=== PATIENT | female | born 1970 | race Two or more races ===

== ENCOUNTER 2024-03-09 10:00 | Outpatient (RCR) | payer MEDICAID, SELFPAY ==
--- NOTE | 2024-02-15 15:01 | PTNOTE_ITS ---
PT Outpatient Daily Note OP Daily Note Outpatient Physical Therapy Treatment Date: 02/15/24 Visit Reasons: BACK SURGERY Subjective: Pt reports back feels tight but notices pain is mild has not needed to take pain meds much because pain level is manageable. Objective: Please see flow sheet for ther ex list. Assessment: Pt educated on log roll technique for supine to sit transfer, performed with Min [employer]. Plan: Continue with POC. Length of Time (minutes) of Treatment: 30 Minutes Procedure Charges Therapeutic Exercise 30 minutes: Yes
--- NOTE | 2024-02-18 15:06 | PT.ODAYNRPT ---
PT Outpatient Daily Note OP Daily Note Outpatient Physical Therapy Treatment Date: 02/18/24 Visit Reasons: BACK SURGERY Subjective: Pt reports back is sore from surgery but no pain. Objective: Please see flow sheet for ther ex list. Assessment: Performed STM to l/s and around incision, pt tolerated well reported relief and discomfort. Plan: Continue with POC. Length of Time (minutes) of Treatment: 30 Minutes Procedure Charges Therapeutic Exercise 30 minutes: Yes
--- NOTE | 2024-02-29 16:11 | PT.ODAYNRPT ---
PT Outpatient Daily Note OP Daily Note Outpatient Physical Therapy Treatment Date: 02/29/24 Visit Reasons: BACK SURGERY Subjective: Pt reports overall back is feeling better. Pt shared she made the mistake of trying to lay on her stomach but got into prone position but realized it might not be indicated at this time due to post op timeline so she immediately got out of prone position. Objective: Please see flow sheet for ther ex list. Assessment: Pt tolerated interventions well with some fatigue, progressing interventions per post op protocol. Plan: Assess response to treatment. Length of Time (minutes) of Treatment: 30 Minutes Procedure Charges Therapeutic Exercise 30 minutes: Yes
--- NOTE | 2024-03-07 11:24 | PT.ODAYNRPT ---
PT Outpatient Daily Note OP Daily Note Outpatient Physical Therapy Treatment Date: 03/07/24 Visit Reasons: BACK SURGERY Subjective: Pt's back is better. Pt notice less pain and has been able to walk longer. Objective: Please see flow chart for list of ther ex performed Assessment: Pt exhibit improvement with l/s mobility. Added more hip strengthening exercises with good tolerance Plan: Continue with PT Length of Time (minutes) of Treatment: 30 Minutes Procedure Charges Therapeutic Exercise 30 minutes: Yes
--- NOTE | 2024-03-09 11:12 | PT.ODAYNRPT ---
PT Outpatient Daily Note OP Daily Note Outpatient Physical Therapy Treatment Date: 03/09/24 Visit Reasons: BACK SURGERY Subjective: Pt content to share LBP is improving, can do light chores around the house but being compliant with post op precautions. Objective: Please see flow sheet for ther ex list. Assessment: Decrease c/o pain resulting in improved tolerance to interventions assigned. Plan: Continue with POC. Length of Time (minutes) of Treatment: 30 Minutes Procedure Charges Therapeutic Exercise 30 minutes: Yes
--- NOTE | 2024-03-09 11:34 | PT.ODAYNRPT ---
PT Outpatient Daily Note OP Daily Note Outpatient Physical Therapy Treatment Date: 03/09/24 Visit Reasons: BACK SURGERY Subjective:
== END 2024-03-12 23:59 | disposition home or self-care (01) ==
LOC: CPTX 10:00
PROVIDERS: PCP Orthopaedic Surgery Orthopaedic Surgery of the Spine; Referring Provider Orthopaedic Surgery Orthopaedic Surgery of the Spine; Visit Provider Orthopaedic Surgery Orthopaedic Surgery of the Spine
DX: M54.16 Radiculopathy, lumbar region (principal); R26.2 Difficulty in walking, not elsewhere classified; Z98.1 Arthrodesis status
CPT/HCPCS: 97110

== ENCOUNTER 2024-03-28 14:30 | Outpatient (RCR) | payer MEDICAID, SELFPAY ==
--- NOTE | 2024-03-14 14:44 | PT.ODAYNRPT ---
PT Outpatient Daily Note OP Daily Note Outpatient Physical Therapy Treatment Date: 03/14/24 Visit Reasons: Back Surgery Subjective: No new complaints or concerns. Objective: Please see flow sheet for ther ex list. Assessment: Pt presents with low back muscle fatigue and soreness at end of session. Plan: Continue with POC. Length of Time (minutes) of Treatment: 30 Minutes Procedure Charges Therapeutic Exercise 30 minutes: Yes
--- NOTE | 2024-03-22 12:53 | PT.ODAYNRPT ---
PT Outpatient Daily Note OP Daily Note Outpatient Physical Therapy Treatment Date: 03/22/24 Visit Reasons: Back Surgery Subjective: Pt's back is better. Her surgical area feels much better. Pt mention midback hurts more lately. Pt stopped wearing the brace around her house. Objective: Please see flow chart for list of ther ex performed Assessment: improving with L/S mobility and progressing with hip strengthening exercises. Cues to correct form with side step and monster walk. Plan: Continue with PT Length of Time (minutes) of Treatment: 30 Minutes Procedure Charges Therapeutic Exercise 30 minutes: Yes
--- NOTE | 2024-03-28 15:07 | PT.ODAYNRPT ---
PT Outpatient Daily Note OP Daily Note Outpatient Physical Therapy Treatment Date: 03/28/24 Visit Reasons: Back Surgery Subjective: Pt's back is better. Pt has been able to stand, walk, and perform chores with less limitation. Objective: Please see flow chart for list of ther ex perfromed Assessment: progressing with overall mobility. Cues to correct monster walk form to rotate laterally with the hips. Plan: Continue with PT Length of Time (minutes) of Treatment: 30 Minutes Procedure Charges Therapeutic Exercise 30 minutes: Yes
== END 2024-04-12 23:59 | disposition home or self-care (01) ==
LOC: CPTX 14:30
PROVIDERS: PCP Orthopaedic Surgery Orthopaedic Surgery of the Spine; Referring Provider Orthopaedic Surgery Orthopaedic Surgery of the Spine; Visit Provider Orthopaedic Surgery Orthopaedic Surgery of the Spine
DX: M54.16 Radiculopathy, lumbar region (principal); R26.2 Difficulty in walking, not elsewhere classified; Z98.1 Arthrodesis status
CPT/HCPCS: 97110

== ENCOUNTER 2024-04-24 22:04 | Emergency (ER) | payer MEDICAID, SELFPAY ==
[2024-04-24 22:05] VITALS: BMI 31.8
[2024-04-24 22:29] VITALS: BP 124/77; PULSE 75; RESP 18; TEMP 36.9; O2SAT 98
--- NOTE | 2024-04-24 22:48 | EDNOTE_ITS ---
ED Back Injury Pain RME/HPI General Chief Complaint: Back Pain/Injury Stated Complaint: back pain after surgery 4 mo. ago Time Seen by Provider: 04/24/24 22:07 Arrival date/time: 04/24/24 22:04 This is a 53-year-old female that reports that she had back surgery approximately 4 months ago. Patient actually has a follow-up appointment in 2 days with her surgeon. Patient states that approximately 2 days ago she leaned backwards on a pile of clothes and ended up sitting on the pile close. Patient denies falling. Patient denies any acute injuries at that time. Patient states that since then she has had back pain. Patient denies fever, chills, nausea, vomiting, diarrhea, cough, chest pain, shortness of breath and urinary symptoms. Patient reports that she was taking oxycodone for pain but in the last couple months she was not requiring the medication. Related Data Previous Rx's ?Medication ?Instructions ?Recorded famotidine 20 mg tablet (Pepcid) 20 mg PO BID #14 tabs 04/19/22 hydrocodone 5 mg-acetaminophen 325 1 tab PO TID PRN pain #14 tabs 04/19/22 mg tablet prednisone 50 mg tablet 50 mg PO QDAY #7 tabs 04/19/22 ibuprofen 800 mg tablet 800 mg PO TID PRN pain #30 tabs 10/12/23 cyclobenzaprine 10 mg tablet 10 mg PO HS #10 tabs 04/24/24 Allergies Allergy/AdvReac Type Severity Reaction Status Date / Time No Known Allergies Allergy Verified 10/12/23 12:07 Review of Systems Review of Systems Systems Reviewed: All systems reviewed, normal except as documented Past Medical History Past Medical History NEUROLOGIC: Negative Neurological Disorders CARDIAC: Negative Cardiac Disorders or Congestive Heart Failure RESPIRATORY: Negative Chronic Obstructive Pulmonary Disease (COPD) GENITOURINARY: Negative Renal Disease ENDOCRINE: Positive Diabetes Mellitus Type 2; Negative Diabetes Mellitus Type 1 Social History SMOKING STATUS: Never smoker SUBSTANCE USE: does not use ED Exam General General appearance: Present alert and in no apparent distress Head Head exam: Present atraumatic Eye Eye exam: Present normal appearance, PERRL and EOMI ENT ENT exam: Present normal exam, normal oropharynx and mucous membranes moist Neck Neck exam: Present normal inspection, full ROM and trachea midline Chest Chest inspection: Present normal inspection and symmetric chest wall rise Respiratory Respiratory exam: Present normal lung sounds bilaterally Cardiovascular Cardiovascular exam: Present regular rate, normal rhythm and normal heart sounds Abdominal Exam Abdominal exam: Present soft Extremities Exam Extremities exam: Present normal inspection and full ROM Back Exam Back exam: Present normal inspection and full ROM Neurological Exam Neurological exam: Present alert, oriented X3 and CN II-XII intact Psychiatric Psychiatric exam: Present normal affect and normal mood Skin Skin exam: Present warm, dry, intact and normal color Course Quality Measures none Orders Category Date Time Status Urinalysis, C/S if Indicated Stat Lab 04/24/24 23:00 Completed Urine Culture Stat Lab 04/24/24 23:00 Completed CYCLObenzaPRINE [Flexeril] Med 04/24/24 22:55 Discontinued 10 mg PO X1 ONE Ketorolac Inj [Toradol Inj] Med 04/24/24 22:55 Discontinued 60 mg IM X1 ONE cefTRIAXone [Rocephin] 1,000 mg Med 04/25/24 00:01 Discontinued Lidocaine 1% 20 ml [Xylocaine 1% 20 ML] 2.1 ml IM X1 oxyCODONE/APAP 5/325 [Percocet 5/325] Med 04/24/24 22:55 Discontinued 1 tab PO X1 ONE Vital Signs Vital signs: Vital Signs Temperature 98.4 F 04/24/24 22:29 Pulse Rate 75 04/24/24 22:29 Respiratory Rate 18 04/24/24 22:29 Blood Pressure 124/77 04/24/24 22:29 Pulse Oximetry (%) 98 04/24/24 22:29 Oxygen Delivery Method Room Air 04/24/24 22:29 Back Pain / Injury MDM Narrative MDM Narrative:: This is a 53-year-old female that reports that she had back surgery appr oximately 4 months ago. Patient actually has a follow-up appointment in 2 days with her surgeon. Patient states that approximately 2 days ago she leaned backwards on a pile of clothes and ended up sitting on the pile close. Patient denies falling. Patient denies any acute injuries at that time. Patient states that since then she has had back pain. Patient denies fever, chills, nausea, vomiting, diarrhea, cough, chest pain, shortness of breath and urinary symptoms. Patient reports that she was taking oxycodone for pain but in the last couple months she was not requiring the medication. I explained to patient at length that she has white blood cells leukocyte Estrace and blood in her urine. Patient states that she was recently seen by her primary provider and was told she had a UTI but patient does not want to take medication because she said she was not having any urinary symptoms. Patient states she sometimes feels pressure but no pain when she urinates. I also explained to patient that because there is blood in her urine this could also be a kidney stone. Patient reports that she is feeling better with the pain medication and if symptoms change or worsen she will come back to the emergency room otherwise for follow-up with her back surgeon. Will treat as a UTI for now. Patient data External records reviewed:: [facility] previous records Clinical information provided by:: patient Social determinants that could affect healthcare access:: none Patient has the following chronic illnesses:: see hpi How is presenting disease/condition affected by chronic disease/condition?: uneffected by Evaluation data The following diagnostics were reviewed and interpreted by me:: lab results Lab and/or radiology exams considered but not ordered:: none Interpretation Summary: see note Medications / Prescriptions Medications or Prescriptions considered but not ordered:: none Medication administrations:: Medication Administration History Discontinued Medications Ceftriaxone Sodium 1,000 mg/ (Lidocaine HCl 2.1 ml) 0 mg IM X1 ONE Stop: 04/25/24 00:02 Last Admin: 04/25/24 00:17 Dose: 1,000 mg Documented By: Cyclobenzaprine HCl (Cyclobenzaprine 5 Mg Tablet) 10 mg PO X1 ONE Stop: 04/24/24 22:56 Last Admin: 04/24/24 23:02 Dose: 10 mg Documented By: Ketorolac Tromethamine (Ketorolac Inj 60 Mg/2 Ml Vial) 60 mg IM X1 ONE Stop: 04/24/24 22:56 Last Admin: 04/24/24 23:04 Dose: 60 mg Documented By: Oxycodone/Acetaminophen (Oxycodone/Apap 5/325 Tablet) 1 tab PO X1 ONE Stop: 04/24/24 22:56 Last Admin: 04/24/24 23:02 Dose: 1 tab Documented By: see mar Consultations Consultation(s) initiated? (list below): No Diagnosis Most likely diagnosis given after review of the tests above:: back pain/uti Admission Indicated Admission indicated?: not indicated Admission Request Was there a request for admission?: No Disposition Plan Disposition Plan: Discharge Discharge Attestation Discharge Attestation: The patient and all family members were given an opportunity to ask questions and understood the discharge instructions. Discharge instructions specifically effects, indications for sooner follow up or return to the emergency department, and the expected course of current diagnosis. Patient condition: Stable Discharge Plan Plan Patient Disposition: HOME (Self Care) Patient condition on transfer: Stable Prescriptions/Referrals Prescriptions/Med Rec: New cyclobenzaprine 10 mg tablet 10 mg PO HS Qty: 10 0RF No Action prednisone 50 mg tablet 50 mg PO QDAY Qty: 7 0RF famotidine [Pepcid] 20 mg tablet 20 mg PO BID Qty: 14 0RF hydrocodone-acetaminophen 5-325 mg tablet 1 tab PO TID MDD 3 PRN (Reason: pain) Qty: 14 0RF ibuprofen 800 mg tablet 800 mg PO TID PRN (Reason: pain) Qty: 30 0RF Referrals: Hyun Meehan MD [Primary Care Provider] - In 1 week Problem List Clinical Impression: Hematuria, Back pain, UTI (urinary tract infection) Patient/Caregiver Discharge Instructions Discharge Activity: activity as tolerated Education Materials: ED Back Pain (Acute or Chronic), ED Hematuria, ED CYSTITIS Female Adult Additional Instructions: Keep scheduled appointment with surgeon and primary doctor. Follow-up with urine culture with primary provider. If symptoms change or get worse please come back to the emergency room. Print Language: Vietnamese Stand Alone Forms: Jeannine Award Info., Patient Portal Info Letter PA/VALERIY Supervising Physician HAKAN/TEXTILE CONVERTER Supervising Physician: rachel
[2024-04-24] MEDS: CYCLObenzaPRINE 5 MG TABLET 10 MG PO (23:02)
[2024-04-24] MEDS: oxyCODONE/APAP 5/325 TABLET 1 TAB PO (23:02)
[2024-04-24] MEDS: KETOROLAC INJ 60 MG/2 ML VIAL IM (23:04)
[2024-04-24 23:17] LABS: Collection Type, Urine Voided
[2024-04-24 23:31] LABS: Bilirubin,Urine Negative (Negative); Blood,Urine Trace (Negative); Clarity,Urine Clear (Clear/Hazy); Color,Urine Lt-Yellow (Lt Yel-Yel); Glucose, Urine Negative (Negative); Ketones,Urine Negative (Negative); Leukocyte Esterase,Urine Positive (Negative); Nitrite,Urine Negative (Negative); Protein,Urine Trace (Neg - Trace); RBC,Urine 10 /hpf (0-3); Specific Gravity,Urine 1.026 (1.001-1.035); Squamous Epithelial Cell,Urine 3 /hpf (0-5); Urobilinogen,Urine Negative mg/dL (0.0-1.0); WBC,Urine 37 /hpf (0-5)
[2024-04-24 23:34] LABS: Culture Indicated,Urine Yes
[2024-04-25] MEDS: cefTRIAXone 1,000 MG, LIDOCAINE 1% 20 ML 2.1 ML IM (00:17)
== END 2024-04-25 00:41 | disposition home or self-care (01) ==
PROVIDERS: Nurse Practitioner Family; Emergency Provider Emergency Medicine; PCP Internal Medicine; Referring Provider Emergency Medicine
DX: N39.0 Urinary tract infection, site not specified (principal)
CPT/HCPCS: 81001; 87086; 96372; 99283; J0696; J1885; J3490; A9270

== ENCOUNTER 2024-05-04 13:36 | Outpatient (RCR) | payer MEDICAID, SELFPAY ==
--- NOTE | 2024-05-04 14:27 | PT.ODS1RPT ---
PT OP Progress/Discharge Note Date of Service: 05/04/24 Progress Note/DC Note Progress Note/Discharge Note: Progress Note Patient Information Visit Reasons: Back surgery Medical Diagnosis: z47.89; m54.16 Treatment Dx #1: Back Pain Certification Date Certification Dates: 05/04/24 to 08/02/24 Status Subjective: Pt mentioned her back has been hurting more lately. Pt notice some numbness down to the left hip recently and went to the ER. Pt admit she has been doing more lately. Pt has been walking, standing, performing chores, and lifting activities as able. Pt does not follow up with surgeon until June 2024. Pt continues to wear back brace intermittently. Objective: L/S AROM: all motions are 75 % towards end range with pain Hip PROM: all motions are WFL Hip MMTs: grossly 4-/5 Assessment: Pt has improved with L/S mobility and core strength allowing her to start light ADLs. Pt advised to modified task where she is lifting less using her back which in time can cause tissue irritation. Pt gave verbal understanding . Pt has not met set goals and will continue to benefit from physical therapy; thank you for your referrals. Plan: Continue with PT/POC and add 8 sessions (2 x wk for 4 wks) Procedure Charges Therapeutic Exercise 30 minutes: Yes
--- NOTE | 2024-05-17 16:10 | PT.ODS1RPT ---
PT OP Progress/Discharge Note Date of Service: 05/17/24 Progress Note/DC Note Progress Note/Discharge Note: Progress Note Patient Information Visit Reasons: Back surgery Medical Diagnosis: z47.89; m54.16 Treatment Dx #1: Back Pain Service Continue Service or Discharge: Continue Service Certification Date Certification Dates: 05/17/24 to 08/14/24 Status Subjective: Pt's back has been hurting more lately. Pt mentioned she's been doing a lot of more lately such as standing, cooking, and chores. Pt has not follow up with surgeon yet but will see him in a few weeks. Pt notice she's been able to walk longer and start some of her recreational activities. Objective: L/S AROM: all motions are WFL Hip PROM: all motions are WFL Hip MMTs: grossly 3+/5 Assessment: Pt is progressing with L/S mobility and core strength allowing her to ambulate, perform chores, and light recreational activities with less limitation. Pt has not met set goals and will continue to benefit from physical therapy; thank you for your referrals. Plan: Continue with PT/POC and add 6 sessions (2 x wk for 3 wks)
== END 2024-05-13 23:59 | disposition home or self-care (01) ==
LOC: CPTX 13:36
PROVIDERS: PCP Internal Medicine; Referring Provider Internal Medicine; Visit Provider Internal Medicine
DX: M54.16 Radiculopathy, lumbar region (principal); Z98.1 Arthrodesis status; R26.2 Difficulty in walking, not elsewhere classified
CPT/HCPCS: 97110

== ENCOUNTER → 2024-05-18 | Outpatient (CLI) | payer MEDICAID, SELFPAY ==
--- NOTE | 2024-05-18 12:40 | XR_ITS ---
Examination: Bone densitometry Date and time of exam:May 18, 2024 1320 hours INDICATIONS: Hysterectomy age 29 Technique: Lumbar spine and hip total bone mineralization values of an calculated. Peak reference and age match control results have been displayed. Findings: Lumbar spine total bone mineralization is0.814 gm/cm2. This is 1.5 standard deviations below peak reference. This is 0.5 standard deviations below age-matched controls. Hip total bone mineralization is 0.866 gm/cm2 This is 0.7 standard deviations below peak reference. This is 0.0 standard deviations at age-matched controls Impression: There is osteopenia based on lumbar spine measurements. There is osteopenia based on hip measurements
== END | disposition home or self-care (01) ==
LOC: CDIM 12:53
PROVIDERS: Referring Provider Nurse Practitioner Family; Visit Provider Nurse Practitioner Family
DX: M85.89 Other specified disorders of bone density and structure, multiple sites (principal); Z78.0 Asymptomatic menopausal state
CPT/HCPCS: 77080

== ENCOUNTER → 2024-05-25 | Outpatient (CLI) | payer MEDICAID, SELFPAY ==
--- NOTE | 2024-05-25 14:30 | XR_ITS ---
Examination: Screening digital mammography, bilateral Computer aided detection 3-D breast Tomosynthesis, bilateral Date and time of exam: May 25, 2024 1420 hrs. Comparison August 10, 2015 Indication: Screening Technique: Nonmagnified MLO, CC views of the breasts to been obtained, reconstructed from 3-D Tomosynthesis images. R2 computer aided detection program utilized for evaluation of suspicious masses and/or abnormal calcifications. 3-D Tomosynthesis images obtained. Findings: Scattered areas of fibroglandular density Bilateral benign calcifications. No interval suspicious masses Impression: BI-RADS category II: Benign Findings. Recommend 1 year follow-up mammogram.
== END | disposition home or self-care (01) ==
PROVIDERS: PCP Nurse Practitioner Family; Referring Provider Nurse Practitioner Family; Visit Provider Nurse Practitioner Family
DX: Z12.31 Encounter for screening mammogram for malignant neoplasm of breast (principal); R92.323 Mammographic fibroglandular density, bilateral breasts; R92.1 Mammographic calcification found on diagnostic imaging of breast
CPT/HCPCS: 77063; 77067

== ENCOUNTER 2024-06-10 11:30 | Outpatient (RCR) | payer MEDICAID, SELFPAY ==
--- NOTE | 2024-05-25 09:32 | PT.ODAYNRPT ---
PT Outpatient Daily Note OP Daily Note Outpatient Physical Therapy Treatment Date: 05/25/24 Visit Reasons: Back surgery Subjective: Pt reports LBP has been worse these last 3 days, feels like pain deep where the incision is. Pt does not recall doing anything different or strenuous. Pt mentioned her daughter brought to her attention that her scar has some dry patches. Pt did mention that a few days ago she was sleeping then rolled over on her stomach, back was painful pt had to roll back to her side. Objective: Please see flow sheet for ther ex list. Assessment: Regressed interventions to accommodate reported pain. PTOR assessed pt scar and said it was ok for pt to participate in PT and recommended pt follow up with PCP if pt has been experiencing worsening symptoms, pt agreed. Plan: Assess response to treatment. Length of Time (minutes) of Treatment: 30 Minutes Procedure Charges Therapeutic Exercise 30 minutes: Yes
--- NOTE | 2024-05-31 13:05 | PT.ODAYNRPT ---
PT Outpatient Daily Note OP Daily Note Outpatient Physical Therapy Treatment Date: 05/31/24 Visit Reasons: Back surgery Subjective: Pt reports back continues to be painful and sore. Pt describes pain deep below incision. Pt has been completing chores such as washing dishes, cleaning shower and doing laundry. Objective: Please see flow sheet for ther ex list. Assessment: Interventions completed with no pain allowing for increase progression in clinic. Plan: Continue with POC. Length of Time (minutes) of Treatment: 30 Minutes Procedure Charges Therapeutic Exercise 30 minutes: Yes
--- NOTE | 2024-06-02 11:10 | PT.ODAYNRPT ---
PT Outpatient Daily Note OP Daily Note Outpatient Physical Therapy Treatment Date: 06/02/24 Visit Reasons: Back surgery Subjective: Pt reports back is slowly feeling better, notices less pain compares to a few days ago. Objective: Please see flow sheet for ther ex list. Assessment: Progression of interventions completed with no complaints. Plan: Continue with POc. Length of Time (minutes) of Treatment: 30 Minutes Procedure Charges Therapeutic Exercise 30 minutes: Yes
--- NOTE | 2024-06-10 12:55 | PT.ODAYNRPT ---
PT Outpatient Daily Note OP Daily Note Outpatient Physical Therapy Treatment Date: 06/10/24 Visit Reasons: Back surgery Subjective: Pt's back has been hurting more lately. Pt mentioned she has pain all over the body as well as swelling in the hands. Objective: Please see flow chart for list of ther ex performed Assessment: increase more core strengthening exercises with good tolerance Plan: Continue with PT Length of Time (minutes) of Treatment: 30 Minutes Procedure Charges Therapeutic Exercise 30 minutes: Yes
== END 2024-06-10 23:59 | disposition home or self-care (01) ==
LOC: CPTX 11:30
PROVIDERS: PCP Internal Medicine; Referring Provider Internal Medicine; Visit Provider Internal Medicine
DX: M54.16 Radiculopathy, lumbar region (principal); R26.2 Difficulty in walking, not elsewhere classified; Z98.1 Arthrodesis status
CPT/HCPCS: 97110

== ENCOUNTER 2024-06-22 10:30 | Outpatient (RCR) | payer MEDICAID, SELFPAY ==
--- NOTE | 2024-06-15 13:17 | PT.ODAYNRPT ---
PT Outpatient Daily Note OP Daily Note Outpatient Physical Therapy Treatment Date: 06/15/24 Visit Reasons: Back surgery Subjective: Pt's back is doing okay but body ache. Pt mentioned since the cold front her scar area feels like ripping. Objective: Please see flow chart for list of ther ex performed Assessment: encourage patient to move as able at home to maintain mobility. Pt gave verbal understanding. slow progress with overall spinal mobility due to pain with most instructed exercises in therapy. Plan: Continue with PT Length of Time (minutes) of Treatment: 30 Minutes Procedure Charges Therapeutic Exercise 30 minutes: Yes
--- NOTE | 2024-06-17 12:57 | PT.ODAYNRPT ---
PT Outpatient Daily Note OP Daily Note Outpatient Physical Therapy Treatment Date: 06/17/24 Visit Reasons: Back surgery Subjective: Pt's back is better but her whole body hurts. Objective: Please see flow chart for list of ther ex performed Assessment: tolerate exercises with minimal pain; patient encourage to continue light ADLs at home to maintain overall mobility. Plan: Continue with PT Length of Time (minutes) of Treatment: 30 Minutes Procedure Charges Therapeutic Exercise 30 minutes: Yes
--- NOTE | 2024-06-22 11:39 | PT.ODAYNRPT ---
PT Outpatient Daily Note OP Daily Note Outpatient Physical Therapy Treatment Date: 06/22/24 Visit Reasons: Back surgery Subjective: Pt reports back continues to be painful, feels it is more superficial but lately she can not find relief. Objective: Please see flow sheet for ther ex list. Assessment: Pt presents in clinic with moderate pain delaying progression of interventions. Plan: Continue with POC. Length of Time (minutes) of Treatment: 30 Minutes Procedure Charges Therapeutic Exercise 30 minutes: Yes
== END 2024-07-11 23:59 | disposition home or self-care (01) ==
LOC: CPTX 10:30
PROVIDERS: PCP Internal Medicine; Referring Provider Internal Medicine; Visit Provider Internal Medicine
DX: M54.16 Radiculopathy, lumbar region (principal); R26.2 Difficulty in walking, not elsewhere classified; Z98.1 Arthrodesis status
CPT/HCPCS: 97110

== ENCOUNTER 2024-07-22 13:00 | Outpatient (RCR) | payer MEDICAID, SELFPAY ==
--- NOTE | 2024-07-15 14:03 | PT.ODAYNRPT ---
PT Outpatient Daily Note OP Daily Note Outpatient Physical Therapy Treatment Date: 07/15/24 Visit Reasons: Back surgery Subjective: Pt reports she continues to have pain in her back does not feel any improvement. Pt mentioned she went to see the surgeon, they ordered a CT scan for pt. Pt mentioned her incision continues to be painful and that rash like spot feels like it is getting bigger, she mentioned it to the doctor but he did not take a look. Objective: Please see flow sheet for ther ex list. Assessment: Pt demonstrates poor activity tolerance, presents with high pain in clinic. Plan: Continue with poC. Length of Time (minutes) of Treatment: 30 Minutes Procedure Charges Therapeutic Exercise 30 minutes: Yes
--- NOTE | 2024-07-22 13:40 | PT.ODAYNRPT ---
PT Outpatient Daily Note OP Daily Note Outpatient Physical Therapy Treatment Date: 07/22/24 Visit Reasons: Back surgery Subjective: Pt reports back continues to be painful. Pt shared that the rash or spot on and around her scar is growing and feels like that is where the pain is coming from. Pt reports burning, electric feeling pain and it goes from scar to R glute area. As per pt she is going to schedule another appointment with surgeon because she is really concerned about it. Pt shared there are times wher she feels ill, gets the chills and can not even get out of bed due to the pain. Objective: Please see flow sheet for ther ex list. Assessment: Modified interventions to accommodate reported pain. Plan: Continue with poC. Length of Time (minutes) of Treatment: 30 Minutes Procedure Charges Therapeutic Exercise 30 minutes: Yes
--- NOTE | 2024-07-27 12:03 | PT.ODS1RPT ---
PT OP Progress/Discharge Note Date of Service: 07/27/24 Progress Note/DC Note Progress Note/Discharge Note: DC Note Patient Information Visit Reasons: Back surgery Service Discharge Date: 07/27/24 Status Assessment: Pt has been seen for 19 visits (eval + 18 visits). Pt last treated on 07/22/24 and wants to be d/c from care. Pt will follow up with MD for further direction and consultation. Pt met most goals set in therapy; thank you for your referrals.
== END 2024-08-10 23:59 | disposition home or self-care (01) ==
LOC: CPTX 13:00
PROVIDERS: PCP Orthopaedic Surgery Orthopaedic Surgery of the Spine; Referring Provider Orthopaedic Surgery Orthopaedic Surgery of the Spine; Visit Provider Orthopaedic Surgery Orthopaedic Surgery of the Spine
DX: M54.16 Radiculopathy, lumbar region (principal); R26.2 Difficulty in walking, not elsewhere classified; Z98.1 Arthrodesis status
CPT/HCPCS: 97110

== ENCOUNTER 2024-10-20 10:11 | Outpatient (AMB) | payer MEDICARE, MEDICAID, SELFPAY ==
[2024-10-20 10:54] VITALS: BP 100/70; PULSE 66; RESP 18; TEMP 36.5; O2SAT 96; BMI 34.7
--- NOTE | 2024-10-20 10:54 | ORTHONT_ITS ---
Vital signs 10/20/24 10:54 Height 1.57 m Height Method Stated Weight 86.239 kg Weight Measurement Method Standing Scale BMI 34.7 BP 100/70 Blood Pressure Source Automatic Cuff Blood Pressure Location Right Upper Arm Position Sitting Respiration 18 Pulse 66 Pulse Source Monitor Temp 97.7 F Temp Source Temporal Artery Scan Pulse Oximetry (%) 96 Oxygen Delivery Method Room Air Med/Allergies Allergies & Medications Allergies No Known Allergies Allergy (Verified 10/20/24 10:58) Medication Reconciliation hydrocodone 5 mg-acetaminophen 325 mg tablet 1 tab PO TID PRN pain #14 tabs 04/19/22 [Rx Confirmed 10/20/24] pregabalin 100 mg capsule 100 mg PO QDAY 10/20/24 [History Confirmed 10/20/24] semaglutide 0.25 mg or 0.5 mg (2 mg/3 mL) subcutaneous pen injector (Ozempic) 0.5 mg subcut QWEEK 10/20/24 [History Confirmed 10/20/24] Exam Exam Patient is in no acute distress and is cooperative with the examination today. Breathing is nonlabored. In no respiratory distress. Bilateral extremities were evaluated and demonstrates sensation intact to light touch. Palpable pedal pulses are present. No significant edema is present. Bilateral hips were examined. The patient has no pain with log roll of the hips. Internal rotation to 30 degrees and external rotation to 30 degrees is painless. Negative FADIR. The left knee was examined. The left knee is in varus alignment. Range of motion from 0-115 degrees. Knee is stable to varus and valgus as well as AP translation with <5mm. Patient has a negative McMurrays. There is no pain with patellofemoral compression and no crepitus noted. The knee is tender to palpation medially. The right knee was also examined. The right knee is in varus alignment. Range of motion from 0-120 degrees. Knee is stable to varus and valgus as well as AP translation with <5mm. Patient has a negative McMurrays. There is no pain with patellofemoral compression and no crepitus noted. The knee is tender to palpation medially. Assessment and Plan Problem List (1) Degenerative arthritis of knee, bilateral: Status: Acute Plan: Patient is a pleasant 54-year-old female with bilateral knee pain and bilateral knee arthritis. We discussed nonoperative and operative. I would like to see weightbearing x-rays. I do suspect she has arthritis as she has significant coronal deformity of her knee. Office Procedures GNS Level of Care Nursing/Assessment Patient Status: Established Patient Nursing Assessment/Reassesment: Medication Reconciliation, Update PMH in EMR and Vital Signs Coordination of Care: Complex Care and Chronic Disease 1-5, Education Complex Pt/Fam, Consent,records obtained, informed consent, Lab and Imaging orders, Results/Orders obtained and Staff clarify orders Special Needs: Language special needs Established Patient Charge Established Patient Point Assignment: 110 Established Patient Point Charge: EP Level 3 (80-115) MA Intake Visit Data Collection New Patient or Established: Established Patient (seen at [facility] [place] within 3 years) Reason for Visit:: KNEE PAIN Seen by Clinical Staff ONLY (RN/MA): No Verbal consent obtained for Telemed visit?: No Product Support Sales Representative Required: Yes PCP or OBGYN visit in last 3 months: Yes Hx Now: No Do You Feel Safe at Home: Yes Authorities Contacted: N/A Questionairres Past Medical History Past Medical History Have you ever been diagnosed with any of the following: Neurological Problems Cerebrovascular Accident (CVA): No Transient Ischemic Attacks (TIA): No Dementia: No Alzheimer's Disease: No Parkinson's Disease: No Brain Tumor: No Meningitis: No Seizures: No Epilepsy: No Multiple Sclerosis: No Cerebral Palsy: No Amyotrophic Lateral Sclerosis (ALS/Rina Gehrig's): No Guillain-[place] Syndrome: No Spina Bifida: No Paralysis: No Peripheral Neuropathy: No Evans's Palsy: No Subdural Hematoma: No Migraine: No Head Trauma: No Spinal Cord Injury: No Traumatic Brain Injury: No Cardiology Problems Myocardial Infarction: No Cardiac Arrhythmia: No Atrial Fibrillation: No Angina: No Heart Murmur: No Coronary Artery Disease: No Atherosclerotic Heart Disease: No Peripheral Vascular Disease: No Hypercholesterolemia: No Aneurysm: No Congestive Heart Failure: No Congenital Heart Disease: No Valvular Heart Disease: No Rheumatic Fever: No Cardiomyopathy: No Edema: No Pericarditis: No Cellulitis: No Deep Vein Thrombosis: No Hypertension: No Hypotension: No Varicose Veins: No Respiratory Problems Chronic Obstructive Pulmonary Disease (COPD): No Asthma: No Bronchitis: No Emphysema: No Pneumonia: No Pulmonary Fibrosis: No Tuberculosis: No Pulmonary Embolism: No Pulmonary Edema: No Sleep Apnea: No CPAP Dependent: No Respiratory Aspiration: No Dyspnea: No Orthopnea: No Hx Cough: No Cough: No Wheezing: No Chest Deformities: No Smoking: No Smoking Cessation Counseling: No Smoking Exposure: No Tobacco Use: No Clubbing: No Exposure to Respiratory Irritants: No Intubation: No Stomache/Intestinal Problems Liver Cancer: No Hepatitis: No Cirrhosis: No Pancreatic Cancer: No Pancreatitis: No Celiac Disease: No Gall Bladder Disease: No Gastrointestinal Bleed: No Esophageal Varices: No Dougherty's Esophagus: No Colitis: No Ulcerative Colitis: No Diverticulitis: No Diverticulosis: No Ulcer: No Colorectal Cancer: No Irritable Bowel: No Crohn's Disease: No Obstructive Bowel: No Hiatal Hernia: No Hemorrhoids: No Gastroesophageal Reflux Disease: No Polyps: No Obesity: No Genital/Urinary Problems Chronic Kidney Disease: No Renal Disease: No Kidney Stones: No Polycystic Kidney Disease: No Neurogenic Bladder: No Inguinal Hernia: No Dialysis: No Reproductive Problems Breast Cancer: No Endometriosis: No Fibroids: No Genital Herpes: No Gonorrhea: No Pelvic Inflammatory Disease: No Polycystic Ovarian Syndrome: No Previous Pregnancies: No Syphilis: No Uterine Prolapse: No Musculoskeletal Problems Muscular Dystrophy: No Myasthenia Gravis: No Marfan's Syndrome: No Bone Cancer: No Arthritis: No Rheumatoid Arthritis: No Osteoporosis: No Degenerative Disk Disease: No Gout: No Scoliosis: No Carpal Tunnel Syndrome: No Fibromyalgia: No Fractures: No Degenerative Joint Disease: No Osteomyelitis: No Poliovirus: No Head,Eye,Nose,Throat Problems Cataracts: No Glaucoma: No Blind: No Retinal Detachment: No Macular Degeneration: No Chronic Ear Infections: No Deafness: No Eye Prosthesis: No Endocrine Problems Diabetes Mellitus Type 1: No Diabetes Mellitus Type 2: Yes Hypoglycemia: No Karlos's Syndrome: No Anthony's Disease: No Hyperthyroidism: No Hypothyroidism: No Thyroid Cancer: No Parathyroid Disease: No Pituitary Disease: No Systemic Lupus Erythematosus: No Syndrome of Inappropriate Antidiuretic Hormone: No Adrenal Disease: No Graves' Disease: No Blood Problems Anemia: No Leukemia: No Hemophilia: No Thalassemia: No Sickle Cell Disease: No Psychologic Problems Schizophrenia: No Recreational Drug Use: No Bipolar Disorder: No Depression: No Anxiety: No Behavior Problems: No Self-Mutilation: No Attention Deficit Disorder: No Attention Deficit Hyperactivity Disorder: No Other Problems Hospitalization: No Autoimmune Disease: No Down Syndrome: No Autism: No Developmental Delay: No Cosmetic Surgery: No Shingles: No Falls: No Blood Transfusions: No Blood Transfusion Reaction: No Anesthesia Reactions: No Organ Transplant: No Chemotherapy: No Radiation Therapy: No Hyperbaric Therapy: No MRSA: No VRSA: No Vancomycin-Resistant Enterococci: No Human Immunodeficiency Virus (HIV): No Chicken Pox: No Measles: No Mumps: No Rubella ([place] Measles): No Pertussis: No Klebsiella Pneumoniae Carbapenemase Producing Bacteria: No Clostridium Difficile: No Hepatitis A: No Hepatitis B: No Hepatitis C: No Communicable Disease: No Cancer: No Cervical Cancer: No Lung Cancer: No Ovarian Cancer: No Surgical History Angioplasty: No Appendectomy: No Bariatric Surgery: No Breast Surgery: No Cancer Surgery: No Carotid Endarterectomy: No Cholecystectomy: No Colectomy: No Colostomy: No Coronary Artery Bypass Graft: No Valve Replacement: No Herniorrhaphy: No Total Hip Replacement: No Total Knee Replacement: No Hysterectomy: No Pacemaker: No Sinus Surgery: No Splenectomy: No TAHBSO-Total Abdominal Hysterectomy: No Thyroidectomy: No Ureter Stent: No Subjective Visit Visit for: new patient and knee Immunization / Flu Flu Vaccine in the Last 12 Months: No Flu Vaccine Exclusion Criteria: No Exclusion Criteria History of Present Illness Chief complaint: Bilateral knee pain This was a 54-year-old female with left greater than right knee pain. This been ongoing for several years. She reports that she has a deformity. She has not had any recent x-rays. She has tried Tylenol only. She had recent back surgery as well Personal History Occupation: unem[employer] PMH: BMI BMI Counceling provided: Yes Pain Pain level (0-10): 6 Pain duration: constant Pain location: inside (medial) and anterior Pain quality: sharp, dull and aching Pain timing: night, increases with activity and stairs Associated signs & symptoms: none Ambulatory data Ambulatory device: none Treatments Improvement with previous injections: No Improvement with PT: No Improvement with NSAIDS: no Review of Systems Review of Systems: All systems negative unless otherwise noted in HPI.
--- NOTE | 2024-10-20 10:59 | XR_ITS ---
Examination: Bilateral knees 2 views Right lateral knee left lateral knee 2 views Bilateral axial knees single view TECHNIQUE: Bilateral AP knees standing single view, bilateral PA knees standing single view flexion Standing right lateral knee left lateral knee 2 views Bilateral axial knees single view total 5 views Date and time: October 20, 2024 1123 hours INDICATIONS: Bilateral knee pain beginning 2 years ago. FINDINGS: Moderate narrowing medial joint spaces Mild to moderate osteoarthritis lateral joint spaces Moderate bilateral osteoarthritis patellofemoral joints No fractures IMPRESSION: Osteoarthritis as above
== END 2024-10-20 11:11 | disposition home or self-care (01) ==
LOC: HODSRG 10:11
PROVIDERS: PCP Internal Medicine; Referring Provider Internal Medicine; Supervising Provider Orthopaedic Surgery Adult Reconstructive Orthopaedic Surgery; Visit Provider Orthopaedic Surgery Adult Reconstructive Orthopaedic Surgery
DX: M17.0 Bilateral primary osteoarthritis of knee (principal); M25.562 Pain in left knee; M25.561 Pain in right knee; E11.9 Type 2 diabetes mellitus without complications
CPT/HCPCS: 73564; 99213; G0463

== ENCOUNTER 2024-11-04 14:41 | Outpatient (AMB) | payer MEDICARE, MEDICAID, SELFPAY ==
[2024-11-04 14:47] VITALS: BP 112/76; PULSE 75; RESP 18; TEMP 36.7; O2SAT 96; BMI 35.2
--- NOTE | 2024-11-04 14:47 | ORTHONT_ITS ---
Vital signs 11/04/24 14:47 Height 1.57 m Height Method Stated Weight 86.721 kg Weight Measurement Method Standing Scale BMI 35.2 BP 112/76 Blood Pressure Source Automatic Cuff Blood Pressure Location Left Upper Arm Position Sitting Respiration 18 Pulse 75 Pulse Source Monitor Temp 98.1 F Temp Source Temporal Artery Scan Pulse Oximetry (%) 96 Oxygen Delivery Method Room Air Med/Allergies Allergies & Medications Allergies No Known Allergies Allergy (Verified 11/04/24 14:54) Medication Reconciliation hydrocodone 5 mg-acetaminophen 325 mg tablet 1 tab PO TID PRN pain #14 tabs 04/19/22 [Rx Confirmed 10/20/24] pregabalin 100 mg capsule 100 mg PO QDAY 10/20/24 [History Confirmed 10/20/24] semaglutide 0.25 mg or 0.5 mg (2 mg/3 mL) subcutaneous pen injector (Ozempic) 0.5 mg subcut QWEEK 10/20/24 [History Confirmed 10/20/24] meloxicam 7.5 mg tablet 7.5 mg PO QDAY #45 tabs 11/04/24 [Rx] Exam Exam Patient is in no acute distress and is cooperative with the examination today. Breathing is nonlabored. In no respiratory distress. Bilateral extremities were evaluated and demonstrates sensation intact to light touch. Palpable pedal pulses are present. No significant edema is present. Bilateral hips were examined. The patient has no pain with log roll of the hips. Internal rotation to 30 degrees and external rotation to 30 degrees is painless. Negative FADIR. The left knee was examined. The left knee is in varus alignment. Range of motion from 0-115 degrees. Knee is stable to varus and valgus as well as AP transl ation with <5mm. Patient has a negative McMurrays. There is no pain with patellofemoral compression and no crepitus noted. The knee is tender to palpation medially. The right knee was also examined. The right knee is in varus alignment. Range of motion from 0-120 degrees. Knee is stable to varus and valgus as well as AP translation with <5mm. Patient has a negative McMurrays. There is no pain with patellofemoral compression and no crepitus noted. The knee is tender to palpation medially. X-rays demonstrate mild arthritis of both knees with no significant deformity Assessment and Plan Problem List (1) Degenerative arthritis of knee, bilateral: Status: Acute Plan: Patient is a pleasant 54-year-old female with bilateral knee pain and bilateral knee arthritis. We discussed nonoperative and operative. She has mild left knee arthritis. She would like to try conservative treatment. We discussed weight loss as well as anti-inflammatories and injection Recommend knee cortisone injection as patient would like to proceed with conservative treatment at this time. The risks and benefits of the procedure were reviewed with the patient and patient gave verbal consent to continue with the procedure. Procedure: performed by Dr. Mccoy Using sterile technique the left knee was thoroughly prepped with alcohol, and approximately 1 cc of Kenalog 40 mg/mL and 4 cc of 1% lidocaine was injected without resistance into the medial tibial femoral joint space. The patient tolerated the procedure. Office Procedures GNS Level of Care Nursing/Assessment Patient Status: Established Patient Nursing Assessment/Reassesment: Medication Reconciliation, Update PMH in EMR and Vital Signs Coordination of Care: Complex Care and Chronic Disease 1-5, Education Complex Pt/Fam, Consent,records obtained, informed consent, Results/Orders obtained and Staff clarify orders Special Needs: Language special needs Established Patient Charge Established Patient Point Assignment: 95 Established Patient Point Charge: EP Level 3 (80-115) Surgical Proc/IM SQ injection Major Surgical Procedure: Yes (KNEE INJECTION) Medication Given Medication Given Medication Given: Yes Documented Dose Given: 1 Route: Infiitration Medication Given Medication Given Medication Given: Yes Documented Dose Given: 4 Route: Infiitration Office Meds methylprednisolone acetate 80 mg/mL suspension for injection Performing Provider: Tk Mccoy MD Performing Location: [facility] Administered by: Tk Mccoy MD on 11/04/24 15:51 Dose Route Admin Location Dispensed Lot Number Expiration Date [facility] Capacity Planning Manager 80 mg intra-articular 1 mL [id number] 03/12/26 [address]-9 A [employer] ropivacaine (PF) 2 mg/mL (0.2 %) injection solution Performing Provider: Tk Mccoy MD Performing Location: [facility] Administered by: Tk Mccoy MD on 11/04/24 15:51 Dose Route Admin Location Dispensed Lot Number Expiration Date [facility] Capacity Planning Manager 20 mL Infiltration 20 mL [id number] 03/12/26 31897-485-97 [facility] Intake Visit Data Collection New Patient or Established: Established Patient (seen at [facility] within 3 years) Reason for Visit:: KNEE PAIN/XRAY RESULTS Seen by Clinical Staff ONLY (RN/MA): No Verbal consent obtained for Telemed visit?: No Assembler Tester Required: Yes PCP or OBGYN visit in last 3 months: Yes Hx Now: No Do You Feel Safe at Home: Yes Authorities Contacted: N/A Questionairres Past Medical History Past Medical History Have you ever been diagnosed with any of the following: Neurological Problems Cerebrovascular Accident (CVA): No Transient Ischemic Attacks (TIA): No Dementia: No Alzheimer's Disease: No Parkinson's Disease: No Brain Tumor: No Meningitis: No Seizures: No Epilepsy: No Multiple Sclerosis: No Cerebral Palsy: No Amyotrophic Lateral Sclerosis (ALS/Rina Gehrig's): No Guillain-[place] Syndrome: No Spina Bifida: No Paralysis: No Peripheral Neuropathy: No Evans's Palsy: No Subdural Hematoma: No Migraine: No Head Trauma: No Spinal Cord Injury: No Traumatic Brain Injury: No Cardiology Problems Myocardial Infarction: No Cardiac Arrhythmia: No Atrial Fibrillation: No Angina: No Heart Murmur: No Coronary Artery Disease: No Atherosclerotic Heart Disease: No Peripheral Vascular Disease: No Hypercholesterolemia: No Aneurysm: No Congestive Heart Failure: No Congenital Heart Disease: No Valvular Heart Disease: No Rheumatic Fever: No Cardiomyopathy: No Edema: No Pericarditis: No Cellulitis: No Deep Vein Thrombosis: No Hypertension: No Hypotension: No Varicose Veins: No Respiratory Problems Chronic Obstructive Pulmonary Disease (COPD): No Asthma: No Bronchitis: No Emphysema: No Pneumonia: No Pulmonary Fibrosis: No Tuberculosis: No Pulmonary Embolism: No Pulmonary Edema: No Sleep Apnea: No CPAP Dependent: No Respiratory Aspiration: No Dyspnea: No Orthopnea: No Hx Cough: No Cough: No Wheezing: No Chest Deformities: No Smoking: No Smoking Cessation Counseling: No Smoking Exposure: No Tobacco Use: No Clubbing: No Exposure to Respiratory Irritants: No Intubation: No Stomache/Intestinal Problems Liver Cancer: No Hepatitis: No Cirrhosis: No Pancreatic Cancer: No Pancreatitis: No Celiac Disease: No Gall Bladder Disease: No Gastrointestinal Bleed: No Esophageal Varices: No Dougherty's Esophagus: No Colitis: No Ulcerative Colitis: No Diverticulitis: No Diverticulosis: No Ulcer: No Colorectal Cancer: No Irritable Bowel: No Crohn's Disease: No Obstructive Bowel: No Hiatal Hernia: No Hemorrhoids: No Gastroesophageal Reflux Disease: No Polyps: No Obesity: No Genital/Urinary Problems Chronic Kidney Disease: No Renal Disease: No Kidney Stones: No Polycystic Kidney Disease: No Neurogenic Bladder: No Inguinal Hernia: No Dialysis: No Reproductive Problems Breast Cancer: No Endometriosis: No Fibroids: No Genital Herpes: No Gonorrhea: No Pelvic Inflammatory Disease: No Polycystic Ovarian Syndrome: No Previous Pregnancies: No Syphilis: No Uterine Prolapse: No Musculoskeletal Problems Muscular Dystrophy: No Myasthenia Gravis: No Marfan's Syndrome: No Bone Cancer: No Arthritis: No Rheumatoid Arthritis: No Osteoporosis: No Degenerative Disk Disease: No Gout: No Scoliosis: No Carpal Tunnel Syndrome: No Fibromyalgia: No Fractures: No Degenerative Joint Disease: No Osteomyelitis: No Poliovirus: No Head,Eye,Nose,Throat Problems Cataracts: No Glaucoma: No Blind: No Retinal Detachment: No Macular Degeneration: No Chronic Ear Infections: No Deafness: No Eye Prosthesis: No Endocrine Problems Diabetes Mellitus Type 1: No Diabetes Mellitus Type 2: Yes Hypoglycemia: No Edwards's Syndrome: No [place]'s Disease: No Hyperthyroidism: No Hypothyroidism: No Thyroid Cancer: No Parathyroid Disease: No Pituitary Disease: No Systemic Lupus Erythematosus: No Syndrome of Inappropriate Antidiuretic Hormone: No Adrenal Disease: No Graves' Disease: No Blood Problems Anemia: No Leukemia: No Hemophilia: No Thalassemia: No Sickle Cell Disease: No Psychologic Problems Schizophrenia: No Recreational Drug Use: No Bipolar Disorder: No Depression: No Anxiety: No Behavior Problems: No Self-Mutilation: No Attention Deficit Disorder: No Attention Deficit Hyperactivity Disorder: No Other Problems Hospitalization: No Autoimmune Disease: No Down Syndrome: No Autism: No Developmental Delay: No Cosmetic Surgery: No Shingles: No Falls: No Blood Transfusions: No Blood Transfusion Reaction: No Anesthesia Reactions: No Organ Transplant: No Chemotherapy: No Radiation Therapy: No Hyperbaric Therapy: No MRSA: No VRSA: No Vancomycin-Resistant Enterococci: No Human Immunodeficiency Virus (HIV): No Chicken Pox: No Measles: No Mumps: No Rubella ([place] Measles): No Pertussis: No Klebsiella Pneumoniae Carbapenemase Producing Bacteria: No Clostridium Difficile: No Hepatitis A: No Hepatitis B: No Hepatitis C: No Communicable Disease: No Cancer: No Cervical Cancer: No Lung Cancer: No Ovarian Cancer: No Surgical History Angioplasty: No Appendectomy: No Bariatric Surgery: No Breast Surgery: No Cancer Surgery: No Carotid Endarterectomy: No Cholecystectomy: No Colectomy: No Colostomy: No Coronary Artery Bypass Graft: No Valve Replacement: No Herniorrhaphy: No Total Hip Replacement: No Total Knee Replacement: No Hysterectomy: No Pacemaker: No Sinus Surgery: No Splenectomy: No TAHBSO-Total Abdominal Hysterectomy: No Thyroidectomy: No Ureter Stent: No Subjective Visit Visit for: follow up visit, knee and x-rays Immunization / Flu Flu Vaccine in the Last 12 Months: No Flu Vaccine Exclusion Criteria: No Exclusion Criteria History of Present Illness Chief complaint: Bilateral knee pain This was a 54-year-old female with left greater than right knee pain. This been ongoing for several years. She reports that she has a deformity. She has tried Tylenol only. She had recent back surgery as well Personal History Occupation: [employer] PMH: BMI BMI Counceling provided: Yes Pain Pain level (0-10): 6 Pain duration: constant Pain location: inside (medial) and anterior Pain quality: sharp, dull and aching Pain timing: night, increases with activity and stairs Associated signs & symptoms: none Ambulatory data Ambulatory device: none Treatments Improvement with previous injections: No Improvement with PT: No Improvement with NSAIDS: no Review of Systems Review of Systems: All systems negative unless otherwise noted in HPI.
== END 2024-11-04 15:22 | disposition home or self-care (01) ==
LOC: HODSRG 14:41
PROVIDERS: PCP Internal Medicine; Referring Provider Internal Medicine; Supervising Provider Orthopaedic Surgery Adult Reconstructive Orthopaedic Surgery; Visit Provider Orthopaedic Surgery Adult Reconstructive Orthopaedic Surgery
DX: M17.0 Bilateral primary osteoarthritis of knee (principal); M25.562 Pain in left knee; M25.561 Pain in right knee; E11.9 Type 2 diabetes mellitus without complications
CPT/HCPCS: 20610; 99213; J1010; J2795; G0463

== ENCOUNTER 2024-11-15 14:00 | Emergency (ER) | payer MEDICARE, MEDICAID, SELFPAY ==
[2024-11-15 14:04] VITALS: PULSE 65; O2SAT 98
[2024-11-15 14:06] VITALS: BP 131/81; PULSE 55; RESP 16; TEMP 36.3; O2SAT 95
--- NOTE | 2024-11-15 14:07 | XR_ITS ---
Examination: CT cervical spine without contrast 2-D sagittal reconstructions 2-D coronal reconstructions 3-D reconstructions. Exam date and time:November 15, 2024, 1746 hours Indications: Patient fell today with image of the neck, neck pain CTDI:vol (mGy) 16.9. DLP: (mGycm) . 405. Technique: Multiple 2 mm axial sections of the cervical spine have been obtained. The coronal and sagittal reconstructions have been obtained. 3-D reconstructions have been obtained. Low dose protocols were performed. One or more of the following dose reduction techniques were used; automated exposure control, adjustment of the mA and/or KV according to patient size, use of iterative reconstruction technique. Findings: Axial sections demonstrate intact base of the skull. C1 exhibit satisfactory relationship to the odontoid. No acute cervical vertebral body fracture seen. Alignment posterior spinous processes satisfactory. Impression: No acute cervical fracture.
--- NOTE | 2024-11-15 14:07 | XR_ITS ---
Examination: Lumbar spine 3 views TECHNIQUE: AP lateral, lateral lower lumbar spine 3 views Date and time: November 15, 2024 1720 hours MEDICATIONS: Low back pain years, history of lumbar spine surgery. FINDINGS: Transpedicular lumbar fusion with disc spacers L3-S1 Anatomic alignment Mild disc narrowing L2-L3, L1-L2. No lumbar fracture. IMPRESSION: Transpedicular lumbar fusion with anatomic alignment
--- NOTE | 2024-11-15 14:07 | XR_ITS ---
Examination: CT brain head without contrast. 2-D sagittal coronal reconstructions Date and time of exam:November 15, 2024, 1745 hours INDICATIONS: Patient fell today with thin, loss of consciousness head pain CTDI: vol (mGy):47.5 DLP: (mGycm):1043 Technique: Multiple CT axial sections of the brain have been obtained, 5 mm slice thickness. Contrast has not been administered. 2-D sagittal, coronal reconstructions have been obtained Low dose protocols were performed. One or more of the following dose reduction techniques were used; automated exposure control, adjustment of the mA and/or KV according to patient size, use of iterative reconstruction technique. Findings: No significant ventricular enlargement. Intra-axial or extra-axial hemorrhage density is not seen. No mass effect or midline shift Basal cisterns are not remarkable. Fourth ventricle is midline. Cranial vault intact. Impression: Negative for acute hemorrhage, mass effect or midline shift
--- NOTE | 2024-11-15 14:07 | XR_ITS ---
Examination: Thoracic spine 2 views TECHNIQUE: AP lateral thoracic spine 2 views Date and time: November 15, 2024, 1715 hours INDICATIONS: Back pain months. FINDINGS: Satisfactory alignment thoracic vertebral bodies No thoracic fracture No significant thoracic disc narrowing Intact pedicles IMPRESSION: No fracture or significant arthritic change
--- NOTE | 2024-11-15 14:08 | XR_ITS ---
EXAMINATION: Ankle, right 2 views . Technique: AP lateral right ankle 2 views Date and time: November 15, 2024, 1726 hours INDICATIONS: Injured ankle today, ankle pain. FINDINGS: No fracture or dislocation No foreign body IMPRESSION: No fracture or dislocation
--- NOTE | 2024-11-15 14:08 | EDNOTE_ITS ---
<Statement entered by Nuris Snyder MD - 11/16/24 07:09> As co-signing physician, I was present and available for consult prn. I concur with the plan and care as documented by the midlevel provider. ED General RME/HPI General Chief complaint: Fall Stated complaint: FALL Time Seen by Provider: 11/15/24 14:06 Arrival date/time: 11/15/24 14:00 CC: Right ankle pain mild headache mid and low back pain HPI patient presents to the ER via EMS after a trip and fall downstairs in front of her house, patient states she tripped over an object that she should have seen. Patient admits to LOC denies any neck pain denies altered mentation nausea vomiting diarrhea EMS reports stable vital signs patient is awake alert oriented. Related Data Home Medications ?Medication ?Instructions ?Recorded ?Confirmed pregabalin 100 mg capsule 100 mg PO QDAY 10/20/2410/11 semaglutide 0.25 mg or 0.5 mg (2 0.5 mg subcut QWEEK 0 10/20/24 10/20/24 mg/3 mL) subcutaneous pen injector (Ozempic) Previous Rx's ?Medication ?Instructions ?Recorded hydrocodone 5 mg-acetaminophen 325 1 tab PO TID PRN pa in #14 tabs 04/19/22 mg tablet meloxicam 7.5 mg tablet 7.5 mg PO QDAY #45 tabs 10/12 09/04 meloxicam 7.5 mg tablet 7.5 mg PO QDAY #10 tabs 09/04 Allergies Allergy/AdvReac Type Severity Reaction Status Date / Time No Known Allergies Allergy Verified 11/15/24 14:10 Review of Systems Review of Systems Narrative Review of Systems: GEN: No fever, no chills, no weight loss EYES: No discharge, no visual changes, no pain HEENT: No ear pain, no congestion, no sore throat PULM: No shortness of breath, no cough, no congestion CV: No chest pain, no dyspnea on exertion, no palpitations GI: No nausea, no vomiting, no diarrhea, no pain, no constipation : No frequency, no urgency, no dysuria MUSC/SKEL: + joint pain, no back pain SKIN: No rash PSYCH: No hallucinations, no depression HEME/LYMPH: No easy bleeding or bruising tendencies NEURO: No weakness, no headache Past Medical History Past Medical History NEUROLOGIC: Negative Neurological Disorders, Cerebrovascular Accident, Transient Ischemic Attacks (TIA), Dementia, Alzheimer's Disease, Parkinson's Disease, Brain Tumor, Meningitis, Seizures, Epilepsy, Multiple Sclerosis, Cerebral Palsy, Amyotrophic Lateral Sclerosis (ALS/Rina Gehrig's), Guillain-[place] Syndrome, Spina Bifida, Paralysis, Peripheral Neuropathy, Evans's Palsy, Subdural Hematoma, Migraine, Head Trauma, Spinal Cord Injury or Traumatic Brain Injury CARDIAC: Negative Cardiac Disorders, Myocardial Infarction, Cardiac Arrhythmia, Atrial Fibrillation, Angina, Heart Murmur, Coronary Artery Disease, Atherosclerotic Heart Disease, Peripheral Vascular Disease, Hypercholesterolemia, Aneurysm, Congestive Heart Failure, Congenital Heart Disease, Valvular Heart Disease, Rheumatic Fever, Cardiomyopathy, Edema, Pericarditis, Cellulitis, Deep Vein Thrombosis, Hypertension, Hypotension or Varicose Veins RESPIRATORY: Negative Chronic Obstructive Pulmonary Disease (COPD), Asthma, Bronchitis, Emphysema, Pneumonia, Pulmonary Fibrosis, Tuberculosis, Pulmonary Embolism, Pulmonary Edema, Sleep Apnea, CPAP Dependent, Respiratory Aspiration, Dyspnea, Orthopnea, Cough, Sputum Production, Wheezing, Chest Deformities, Smoking, Smoking Cessation Counseling, Smoking Exposure, Tobacco Use, Clubbing, Exposure to Respiratory Irritants or Intubation GASTROINTESTINAL: Negative Liver Cancer, Hepatitis, Cirrhosis, Pancreatic Cancer, Pancreatitis, Celiac Disease, Gall Bladder Disease, Gastrointestinal Bleed, Esophageal Varices, Dougherty's Esophagus, Colitis, Ulcerative Colitis, Div erticulitis, Diverticulosis, Ulcer, Colorectal Cancer, Irritable Bowel, Crohn's Disease, Obstructive Bowel, Hiatal Hernia, Hemorrhoids, Gastroesophageal Reflux Disease or Obesity GENITOURINARY: Negative Renal Disease, Kidney Stones, Polycystic Kidney Disease, Neurogenic Bladder, Inguinal Hernia or Dialysis REPRODUCTIVE: Negative Breast Cancer, Endometriosis, Fibroids, Genital Herpes, Gonorrhea, Pelvic Inflammatory Disease, Hx Polycystic Ovarian Syndrome, Previous Pregnancies, Syphilis or Uterine Prolapse MUSCULOSKELETAL: Negative Muscular Dystrophy, Myasthenia Gravis, Marfan's Syndrome, Bone Cancer, Arthritis, Rheumatoid Arthritis, Osteoporosis, Degenerative Disk Disease, Gout, Scoliosis, Carpal Tunnel Syndrome, Fibromyalgia, Fractures, Degenerative Joint Disease, Osteomyelitis or Poliovirus ENT: Negative Cataracts, Glaucoma, Blind, Retinal Detachment, Macular Degeneration, Ear Infection, Deafness, Head Trauma or Eye Prosthesis ENDOCRINE: Positive Diabetes Mellitus Type 2; Negative Diabetes Mellitus Type 1, Hypoglycemia, Kimball's Syndrome, Piedmont's Disease, Hyperthyroidism, Hypothyroidism, Thyroid Cancer, Parathyroid Disease, Pituitary Disease, Systemic Lupus Erythematosus, Syndrome of Inappropriate Antidiuretic Hormone (SIADH), Adrenal Disease or Graves' Disease HEMATOLOGIC: Negative Anemia, Leukemia, Hemophilia, Thalassemia or Sickle Cell Disease PSYCHO/SOCIAL: Negative Schizophrenia, Recreational Drug Use, Bipolar Disorder, Depression, Anxiety, Behavior Problems, Self-Mutilation, Attention Deficit Disorder or Attention Deficit Hyperactivity Disorder OTHER HISTORY: Negative Hospitalization, Autoimmune Disease, Down Syndrome, Autism, Developmental Delay, Cosmetic Surgery, Shingles, Falls, Blood Transfusions, Blood Transfusion Reaction, Anesthesia Reactions, Organ Tr ansplant, Chemotherapy, Radiation Therapy, Hyperbaric Therapy, MRSA, VRSA, Vancomycin-Resistant Enterococci, Human Immunodeficiency Virus (HIV), Chicken Pox, Measles, Mumps, Rubella (Guyanese Measles), Pertussis, Hx Klebsiella Pneumoniae Carbapenemase (KPC)-Producing Bacteria, Clostridium Difficile, Hepatitis A, Hepatitis B, Hepatitis C, Communicable Disease, Cancer, Breast Cancer, Cervical Cancer, Colorectal Cancer, Lung Cancer or Ovarian Cancer Surgical History SURGICAL: Negative Coronary Artery Bypass Graft, Valve Replacement, Pacemaker, Carotid Endarterectomy, Thyroidectomy, Hysterectomy or Organ Transplant Social History SMOKING STATUS: Never smoker SUBSTANCE USE: does not use ED Exam Narrative Physical exam: [General: Obese not in any acute distress Head normocephalic, no step-off hematoma induration ulceration or crepitus HEENT: Eyes pupils are PERRLA EOMs are intact no raccoon's eyes or Neri sign mouth pink moist membranes, swallow symmetrical phonation is normal. No rhinorrhea. No otorrhea. Within acceptable limits Neck is supple nontender full range of motion flexion extension and rotation no tenderness to palpation of the cervical spinous process Chest equal chest rise nontender to palpation Respiratory: Clear to auscultation no wheezes crackles or rubs CV: Rate rhythm is regular no murmurs rubs or clicks Abdomen is distended secondary to body habitus soft nontender no masses positive bowel sounds all 4 quadrants Back: No CVA tenderness no spinous process tenderness from cervical spine thoracic and lumbar spine Skin: Vertical lower thoracic upper lumbar surgical scar clean dry and intact. Otherwise skin is intact no petechiae rash induration ulceration or crepitus Extremities: Right ankle lateral malleolus tenderness with palpation cap refill to digits less than 2 seconds neurosensory intact. Moving all other extremities against resistance cap refill less than 2 seconds neurosensory intact Neuro: Awake alert oriented x3 Glascow coma 15 no focal deficits] Course Course Course Narrative: At 1947 patient has had no deterioration in neurologic status throughout her visit emergency room imaging shows no acute finding requires emergent or immediate intervention patient will be discharged home. Quality Measures none Orders Category Date Time Status Splint / Immobilizer STAT Care 11/15/24 19:[address] cervical spine wo con Stat Exams 11/15/24 14:[address] head/brain wo con Stat Exams 11/15/24 14:07 Completed XR ankle RT 2V Stat Exams 11/15/24 14:08 Completed XR lumbar spine 2-3V Stat Exams 11/15/24 14:07 Completed XR thoracic spine 2V Stat Exams 11/15/24 14:07 Completed Vital Signs Vital signs: Vital Signs Temperature 97.4 F 11/15/24 14:06 Pulse Rate 55 L 11/15/24 14:06 Respiratory Rate 16 11/15/24 14:06 Blood Pressure 131/81 H 11/15/24 14:06 Pulse Oximetry (%) 95 11/15/24 14:06 Oxygen Delivery Method Room Air 11/15/24 14:06 Discharge Plan Plan Patient Disposition: HOME (Self Care) Prescriptions/Referrals Prescriptions/Med Rec: New meloxicam 7.5 mg tablet 7.5 mg PO QDAY Qty: 10 0RF No Action pregabalin 100 mg capsule 100 mg PO QDAY Ozempic 0.25 mg or 0.5 mg (2 mg/3 mL) pen injector 0.5 mg subcut QWEEK meloxicam 7.5 mg tablet 7.5 mg PO QDAY Qty: 45 3RF hydrocodone-acetaminophen 5-325 mg tablet 1 tab PO TID MDD 3 PRN (Reason: pain) Qty: 14 0RF Referrals: Qing Meehan MD [Primary Care Provider] - In 1 week Problem List Clinical Impression: Fall, Ankle contusion Patient/Caregiver Discharge Instructions Education Materials: Bruises (Contusions), ED Soft Tissue Contusion Additional Instructions: Take the medication as prescribed if there is worsening of symptoms return the emergency room medially for further evaluation. Please be careful when stepping out of your house and around the plants on your steps. Print Language: [place] Stand Alone Forms: Jeannine Award Info., Work/School Release, Patient Portal Info Letter PA/MARKETING MANAGER [employer] Supervising Physician VICKIE Supervising Physician: Zhang Snell ENP [facility] Clinical Information Provided by patient and EMS Medical Records Reviewed [facility] and EMS Meds/Rx Considered, not Ordered None Labs/Rad/Tests considered, not Ordered None Chronic Illness/Social Conditions which may negatively complicate care or outcome(s)-explain: None or not applicable Lab Interpretation Labs: none Imaging Provider imaging interpretation(s): CT head and C-spine as interpreted by me read by radiology were negative for any acute finding requires emergent need intervention Ankle x-ray as interpreted me shows no acute fracture malalignment or dislocation Lumbar vertebral a 2 view x-ray shows hardware in place no new gross abnormalities appreciated. This as interpreted by me Thoracic spine 2 view x-ray shows no acute fracture or malalignment as interpreted by me. Radiology reports / interpretation(s): No acute finding Diagnosis Differential diagnosis: Ankle fracture head injury spine fracture Dispositon Disposition: Discharge Home
[2024-11-15 14:09] VITALS: BMI 31.8
[2024-11-15 18:06] VITALS: BP 118/76; PULSE 54; RESP 15; TEMP 36.7; O2SAT 97
[2024-11-15 20:04] VITALS: BP 136/65; PULSE 78; RESP 19; TEMP 36.6; O2SAT 99
== END 2024-11-15 20:05 | disposition home or self-care (01) ==
PROVIDERS: Emergency Provider Emergency Medicine; PCP Internal Medicine
DX: S90.01XA Contusion of right ankle, initial encounter (principal); R51.9 Headache, unspecified; M54.2 Cervicalgia; M54.6 Pain in thoracic spine; M54.50 Low back pain, unspecified; W18.00XA Striking against unspecified object with subsequent fall, initial encounter; Y92.009 Unspecified place in unspecified non-institutional (private) residence as the place of occurrence of the external cause
CPT/HCPCS: 70450; 72070; 72100; 72125; 73600; 99284

== ENCOUNTER 2025-02-06 09:00 | Outpatient (RCR) | payer MEDICARE, SELFPAY ==
--- NOTE | 2025-01-16 13:01 | PT.OIERPT ---
PT OP Initial Eval Patient Information Outpatient Physical Therapy Treatment Date: 01/16/25 Visit Reasons: low back pain Medical Diagnosis: z47.89; m54.51 Treatment Dx #1: Back Pain Start of Care: 01/16/25 Date of Onset: 1 year ago Smoking Status Smoking Status: Never smoker Initial Assessment Subjective: Pt is a 54 y/o female s/p lumbar fusion (L3-S1) ~ [address] Peters. Pt still has pain (6/10) the upper back portion and intermittent symptoms down the legs. Pt has limitation with walking, standing, lifting, chores, balance, squatting, and performing recreational activities. Pt also mentioned she has fallen x 2 in the past few months. Objective: L/S AROM: all motions are WFL with end range pain in all plane Hip PROM: all motions are WFL Hip MMTs: grossly 3+/5 Assessment: Pt demonstrate back pain with mobility deficits s/p fusion leading to difficulty with ADLs. Pt will benefit from physical therapy to increase ROM, strength, and work on core stability Short Term and Skilled Nursing Goals 1) Increase L/S AROM WNL in 6 wks to be able to perform chores 2) Decrease back pain to 2/10 in 6 wks to be able to sit and stand more than 30 mins 3) Increase core strength WNL in 6 wks to be able to perform recreational activities 4) Increase hip MMTs grossly to 4/5 in 6 wks to be able to walk more than 30 mins 5) Indep with HEP Treatment Plan 1) Manual Therapy 2) Therapeutic Activities 3) Therapeutic Exercises 4) Modalities (ice, heat) 5) Balance Training Frequency and Duration: 2 x wk for 6 wks Certification Dates: 01/16/25 to 04/18/25 Procedure Charges OP PT Eval Mod Complex 30 minutes: Yes
--- NOTE | 2025-01-24 09:06 | PT.ODAYNRPT ---
PT Outpatient Daily Note OP Daily Note Outpatient Physical Therapy Treatment Date: 01/24/25 Visit Reasons: low back pain Subjective: Pt reports LBP has been pretty consistent, notices that she has to use her hands to support her back sometimes because of the pain she feels when initially getting up from bed or sitting. Objective: Please see flow sheet for ther ex list. Assessment: Pt demonstrates poor activity tolerance due to pain response. Plan: Continue with pOC. Length of Time (minutes) of Treatment: 30 Minutes [facility] Service Modifier Method I: Divide the number of min of care provided by the [facility]/SUPERVISOR PASTRY by the total min of care provided then multiply by 100. If greater than 11 percent modifier is required. Method II: Divide the total time of care provided to patient by 10 (round to the nearest whole number) and add 1 min. to set the minimum time requirement. If treatment total was 60 min., then 10% of 6 min PT CQ modifier applied: CQ Modifier applied Procedure Charges Therapeutic Exercise 30 minutes: Yes
--- NOTE | 2025-02-01 08:58 | PT.ODAYNRPT ---
PT Outpatient Daily Note OP Daily Note Outpatient Physical Therapy Treatment Date: 02/01/25 Visit Reasons: low back pain Subjective: Pt reports back continues to be painful. Pt had a follow up with MD and pt mentioned that MD will be ordering a MRI and blood work. Objective: Please see flow sheet for ther ex list. Assessment: Pt demonstrates poor activity tolerance due to pain response and R leg cramping. Plan: Continue with pOC. Length of Time (minutes) of Treatment: 30 Minutes Procedure Charges Therapeutic Exercise 30 minutes: Yes
--- NOTE | 2025-02-06 10:41 | PT.ODAYNRPT ---
PT Outpatient Daily Note OP Daily Note Outpatient Physical Therapy Treatment Date: 02/06/25 Visit Reasons: low back pain Subjective: Pt's upper mid back on the left side is hurting. Pt feels very stiff with rotation and lifting. Pt is disappointed at the moment because she used to be able to doing everything independently. Objective: Please see flow chart for list of ther ex performed Assessment: patient educated to be more mindful with her ADLs at home to decrease back irritation. Pt gave verbal understanding that back is not the same due to back fusion. Supine heat helped patient tolerate supine exercises Plan: Continue with PT Length of Time (minutes) of Treatment: 30 Minutes Procedure Charges Therapeutic Exercise 30 minutes: Yes
== END 2025-02-10 23:59 | disposition home or self-care (01) ==
LOC: CPTX 09:00
PROVIDERS: PCP Orthopaedic Surgery Orthopaedic Surgery of the Spine; Referring Provider Orthopaedic Surgery Orthopaedic Surgery of the Spine; Visit Provider Orthopaedic Surgery Orthopaedic Surgery of the Spine
DX: Z47.89 Encounter for other orthopedic aftercare (principal); Z98.1 Arthrodesis status; M54.50 Low back pain, unspecified
CPT/HCPCS: 97110; 97162

== ENCOUNTER 2025-02-07 13:26 | Outpatient (AMB) | payer MEDICARE, MEDICAID, SELFPAY ==
[2025-02-07 14:03] VITALS: BP 111/75; PULSE 57; RESP 18; TEMP 36.1; O2SAT 96; BMI 32.8
--- NOTE | 2025-02-07 14:03 | ORTHONT_ITS ---
Vital signs 02/07/25 14:03 Height 1.6 m Height Method Stated Weight 83.915 kg Weight Measurement Method Standing Scale BMI 32.8 BP 111/75 Blood Pressure Source Automatic Cuff Blood Pressure Location Left Upper Arm Position Sitting Respiration 18 Pulse 57 L Pulse Source Monitor Temp 97.0 F Temp Source Temporal Artery Scan Pulse Oximetry (%) 96 Oxygen Delivery Method Room Air Med/Allergies Allergies & Medications Allergies No Known Allergies Allergy (Verified 02/07/25 14:04) Medication Reconciliation hydrocodone 5 mg-acetaminophen 325 mg tablet 1 tab PO TID PRN pain #14 tabs 04/19/22 [Rx Confirmed 02/07/25] pregabalin 100 mg capsule 100 mg PO QDAY 10/20/24 [History Confirmed 02/07/25] semaglutide 0.25 mg or 0.5 mg (2 mg/3 mL) subcutaneous pen injector (Ozempic) 0.5 mg subcut QWEEK 10/20/24 [History Confirmed 02/07/25] meloxicam 7.5 mg tablet 7.5 mg PO QDAY #45 tabs 11/04/24 [Rx Confirmed 02/07/25] meloxicam 7.5 mg tablet 7.5 mg PO QDAY #10 tabs 11/15/24 [Rx Confirmed 02/07/25] Exam Exam Patient is in no acute distress and is cooperative with the examination today. Breathing is nonlabored. In no respiratory distress. Bilateral extremities were evaluated and demonstrates sensation intact to light touch. Palpable pedal pulses are present. No significant edema is present. Bilateral hips were examined. The patient has no pain with log roll of the hips. Internal rotation to 30 degrees and external rotation to 30 degrees is painless. Negative FADIR. The left knee was examined. The left knee is in varus alignment. Range of motion from 0-115 degrees. Knee is stable to varus and valgus as well as AP translation with <5mm. Patient has a negative McMurrays. There is no pain with patellofemoral compression and no crepitus noted. The knee is tender to palpation medially. The right knee was also examined. The right knee is in varus alignment. Range of motion from 0-120 degrees. Knee is stable to varus and valgus as well as AP translation with <5mm. Patient has a negative McMurrays. There is no pain with patellofemoral compression and no crepitus noted. The knee is tender to palpation medially. X-rays demonstrate mild arthritis of both knees with no significant deformity Assessment and Plan Problem List (1) Degenerative arthritis of knee, bilateral: Status: Acute Plan: Patient is a pleasant 54-year-old female with bilateral knee pain and bilateral knee arthritis. We discussed nonoperative and operative. She has mild left knee arthritis. She would like to try conservative treatment. We discussed weight loss as well as anti-inflammatories and injection Recommend knee cortisone injection as patient would like to proceed with conservative treatment at this time. The risks and benefits of the procedure were reviewed with the patient and patient gave verbal consent to continue with the procedure. Procedure: performed by Dr. Mccoy Using sterile technique the left knee was thoroughly prepped with alcohol, and approximately 1 cc of Kenalog 40 mg/mL and 4 cc of 1% lidocaine was injected without resistance into the medial tibial femoral joint space. The patient tolerated the procedure. Office Procedures GNS Level of Care Nursing/Assessment Patient Status: Established Patient Nursing Assessment/Reassesment: Medication Reconciliation, Update PMH in EMR and Vital Signs Coordination of Care: Complex Care and Chronic Disease 1-5, Education Complex Pt/Fam, Consent,records obtained, informed consent, Results/Orders obtained and Staff clarify orders Special Needs: Language special needs Established Patient Charge Established Patient Point Assignment: 95 Established Patient Point Charge: EP Level 3 (80-115) Surgical Proc/IM SQ injection Minor Surgical Procedure: Yes (KNEE INJECTION) Medication Given Medication Given Medication Given: Yes Documented Dose Given: 1 Route: Infiitration Medication Given Medication Given Medication Given: Yes Documented Dose Given: 4 Route: Infiitration Office Meds methylprednisolone acetate 80 mg/mL suspension for injection Performing Provider: Tk Mccoy MD Performing Location: [facility] Administered by: Tk Mccoy MD on 02/07/25 14:40 Dose Route Admin Location Dispensed Lot Number Expiration Date Pack age [facility] Project Manager [employer] 80 mg intra-articular 1 mL [id number] 10/10/26 [address]-0 [id number] [employer] ropivacaine (PF) 2 mg/mL (0.2 %) injection solution Performing Provider: Tk Mccoy MD Performing Location: [facility] Administered by: Tk Mccoy MD on 02/07/25 14:40 Dose Route Admin Location Dispensed Lot Number Expiration Date Pack age [facility] [employer] Project Manager [employer] 20 mL Infiltration 20 mL [id number] 05/12/27 34046-734-41 [id number] [facility] Intake Visit Data Collection New Patient or Established: Established Patient (seen at [facility] within 3 years) Seen by Clinical Staff ONLY (RN/MA): No Verbal consent obtained for Telemed visit?: No Finance Manager Required: Yes PCP or OBGYN visit in last 3 months: Yes Hx Now: No Do You Feel Safe at Home: Yes Authorities Contacted: N/A Questionairres Past Medical History Past Medical History Have you ever been diagnosed with any of the following: Neurological Problems Cerebrovascular Accident (CVA): No Transient Ischemic Attacks (TIA): No Dementia: No Alzheimer's Disease: No Parkinson's Disease: No Brain Tumor: No Meningitis: No Seizures: No Epilepsy: No Multiple Sclerosis: No Cerebral Palsy: No Amyotrophic Lateral Sclerosis (ALS/Rina Gehrig's): No Guillain-Elba Syndrome: No Spina Bifida: No Paralysis: No Peripheral Neuropathy: No Evans's Palsy: No Subdural Hematoma: No Migraine: No Head Trauma: No Spinal Cord Injury: No Traumatic Brain Injury: No Cardiology Problems Myocardial Infarction: No Cardiac Arrhythmia: No Atrial Fibrillation: No Angina: No Heart Murmur: No Coronary Artery Disease: No Atherosclerotic Heart Disease: No Peripheral Vascular Disease: No Hypercholesterolemia: No Aneurysm: No Congestive Heart Failure: No Congenital Heart Disease: No Valvular Heart Disease: No Rheumatic Fever: No Cardiomyopathy: No Edema: No Pericarditis: No Cellulitis: No Deep Vein Thrombosis: No Hypertension: No Hypotension: No Varicose Veins: No Respiratory Problems Chronic Obstructive Pulmonary Disease (COPD): No Asthma: No Bronchitis: No Emphysema: No Pneumonia: No Pulmonary Fibrosis: No Tuberculosis: No Pulmonary Embolism: No Pulmonary Edema: No Sleep Apnea: No CPAP Dependent: No Respiratory Aspiration: No Dyspnea: No Orthopnea: No Hx Cough: No Cough: No Wheezing: No Chest Deformities: No Smoking: No Smoking Cessation Counseling: No Smoking Exposure: No Tobacco Use: No Clubbing: No Exposure to Respiratory Irritants: No Intubation: No Stomache/Intestinal Problems Liver Cancer: No Hepatitis: No Cirrhosis: No Pancreatic Cancer: No Pancreatitis: No Celiac Disease: No Gall Bladder Disease: No Gastrointestinal Bleed: No Esophageal Varices: No Dougherty's Esophagus: No Colitis: No Ulcerative Colitis: No Diverticulitis: No Diverticulosis: No Ulcer: No Colorectal Cancer: No Irritable Bowel: No Crohn's Disease: No Obstructive Bowel: No Hiatal Hernia: No Hemorrhoids: No Gastroesophageal Reflux Disease: No Polyps: No Obesity: No Genital/Urinary Problems Chronic Kidney Disease: No Renal Disease: No Kidney Stones: No Polycystic Kidney Disease: No Neurogenic Bladder: No Inguinal Hernia: No Dialysis: No Reproductive Problems Breast Cancer: No Endometriosis: No Fibroids: No Genital Herpes: No Gonorrhea: No Pelvic Inflammatory Disease: No Polycystic Ovarian Syndrome: No Previous Pregnancies: No Syphilis: No Uterine Prolapse: No Musculoskeletal Problems Muscular Dystrophy: No Myasthenia Gravis: No Marfan's Syndrome: No Bone Cancer: No Arthritis: No Rheumatoid Arthritis: No Osteoporosis: No Degenerative Disk Disease: No Gout: No Scoliosis: No Carpal Tunnel Syndrome: No Fibromyalgia: No Fractures: No Degenerative Joint Disease: No Osteomyelitis: No Poliovirus: No Head,Eye,Nose,Throat Problems Cataracts: No Glaucoma: No Blind: No Retinal Detachment: No Macular Degeneration: No Chronic Ear Infections: No Deafness: No Eye Prosthesis: No Endocrine Problems Diabetes Mellitus Type 1: No Diabetes Mellitus Type 2: Yes Hypoglycemia: No [place]'s Syndrome: No Apache's Disease: No Hyperthyroidism: No Hypothyroidism: No Thyroid Cancer: No Parathyroid Disease: No Pituitary Disease: No Systemic Lupus Erythematosus: No Syndrome of Inappropriate Antidiuretic Hormone: No Adrenal Disease: No Graves' Disease: No Blood Problems Anemia: No Leukemia: No Hemophilia: No Thalassemia: No Sickle Cell Disease: No Psychologic Problems Schizophrenia: No Recreational Drug Use: No Bipolar Disorder: No Depression: No Anxiety: No Behavior Problems: No Self-Mutilation: No Attention Deficit Disorder: No Attention Deficit Hyperactivity Disorder: No Other Problems Hospitalization: No Autoimmune Disease: No Down Syndrome: No Autism: No Developmental Delay: No Cosmetic Surgery: No Shingles: No Falls: No Blood Transfusions: No Blood Transfusion Reaction: No Anesthesia Reactions: No Organ Transplant: No Chemotherapy: No Radiation Therapy: No Hyperbaric Therapy: No MRSA: No VRSA: No Vancomycin-Resistant Enterococci: No Human Immunodeficiency Virus (HIV): No Chicken Pox: No Measles: No Mumps: No Rubella ([place]ian Measles): No Pertussis: No Klebsiella Pneumoniae Carbapenemase Producing Bacteria: No Clostridium Difficile: No Hepatitis A: No Hepatitis B: No Hepatitis C: No Communicable Disease: No Cancer: No Cervical Cancer: No Lung Cancer: No Ovarian Cancer: No Surgical History Angioplasty: No Appendectomy: No Bariatric Surgery: No Breast Surgery: No Cancer Surgery: No Carotid Endarterectomy: No Cholecystectomy: No Colectomy: No Colostomy: No Coronary Artery Bypass Graft: No Valve Replacement: No Herniorrhaphy: No Total Hip Replacement: No Total Knee Replacement: No Hysterectomy: No Pacemaker: No Sinus Surgery: No Splenectomy: No TAHBSO-Total Abdominal Hysterectomy: No Thyroidectomy: No Ureter Stent: No Subjective Visit Visit for: follow up visit, knee and x-rays Immunization / Flu Flu Vaccine in the Last 12 Months: No Flu Vaccine Exclusion Criteria: No Exclusion Criteria History of Present Illness Chief complaint: Bilateral knee pain This was a 54-year-old female with left greater than right knee pain. This been ongoing for several years. She reports that she has a deformity. She has tried Tylenol only. She had recent back surgery as well Personal History Occupation: unemloyed Red flag PMH: BMI BMI Counceling provided: Yes Pain Pain level (0-10): 6 Pain duration: constant Pain location: inside (medial) and anterior Pain quality: sharp, dull and aching Pain timing: night, increases with activity and stairs Associated signs & symptoms: none Ambulatory data Ambulatory device: none Treatments Improvement with previous injections: No Improvement with PT: No Improvement with NSAIDS: no Review of Systems Review of Systems: All systems negative unless otherwise noted in HPI.
== END 2025-02-07 14:26 | disposition home or self-care (01) ==
PROVIDERS: PCP Internal Medicine; Referring Provider Internal Medicine; Supervising Provider Orthopaedic Surgery Adult Reconstructive Orthopaedic Surgery; Visit Provider Orthopaedic Surgery Adult Reconstructive Orthopaedic Surgery
DX: M25.562 Pain in left knee (principal); M25.561 Pain in right knee; M17.0 Bilateral primary osteoarthritis of knee
CPT/HCPCS: 20610; 99213; J1010; J2795; G0463

== ENCOUNTER 2025-03-01 08:39 | Outpatient (RCR) | payer MEDICARE, MEDICAID, SELFPAY ==
--- NOTE | 2025-03-01 09:23 | PT.ODAYNRPT ---
PT Outpatient Daily Note OP Daily Note Outpatient Physical Therapy Treatment Date: 03/01/25 Visit Reasons: LUMBAR FUSION Subjective: Pt reports she continues to have back pain and the cold weather really aggravated symptoms. Objective: Please see flow sheet for ther ex list. Assessment: Interventions completed with minimal pain. Plan: Continue with POC. Length of Time (minutes) of Treatment: 30 Minutes Procedure Charges Therapeutic Exercise 30 minutes: Yes
== END 2025-03-12 23:59 | disposition home or self-care (01) ==
LOC: CPTX 08:39
PROVIDERS: PCP Orthopaedic Surgery Orthopaedic Surgery of the Spine; Referring Provider Orthopaedic Surgery Orthopaedic Surgery of the Spine; Visit Provider Orthopaedic Surgery Orthopaedic Surgery of the Spine
DX: Z47.89 Encounter for other orthopedic aftercare (principal); Z98.1 Arthrodesis status; M54.51 Vertebrogenic low back pain; R26.89 Other abnormalities of gait and mobility; R26.2 Difficulty in walking, not elsewhere classified
CPT/HCPCS: 97110

== ENCOUNTER 2025-03-23 11:30 | Outpatient (RCR) | payer MEDICARE, MEDICAID, SELFPAY ==
--- NOTE | 2025-03-15 11:08 | PT.ODAYNRPT ---
PT Outpatient Daily Note OP Daily Note Outpatient Physical Therapy Treatment Date: 03/15/25 Visit Reasons: lumbar fusion Subjective: Pt continues to have good and bad days. Pt will no longer see Dr To due to change in insurance. On her bad days Pt has difficulty with sleeping, sitting, and standing. Objective: Please see flow chart for list of ther ex performed Assessment: performed supine exercises with good tolerance and require cues to increase pace and correct forms. Plan: Continue with PT Length of Time (minutes) of Treatment: 30 Minutes Procedure Charges Therapeutic Exercise 30 minutes: Yes
--- NOTE | 2025-03-23 12:59 | PT.ODAYNRPT ---
PT Outpatient Daily Note OP Daily Note Outpatient Physical Therapy Treatment Date: 03/23/25 Visit Reasons: lumbar fusion Subjective: Pt reports back has been doing a little better, has been doing exercises. Objective: Please see flow sheet for ther ex list. Assessment: Added interventions completed with good tolerance. Plan: Continue with poC. Procedure Charges Therapeutic Exercise 30 minutes: Yes
--- NOTE | 2025-04-12 11:04 | PT.ODS1RPT ---
PT OP Progress/Discharge Note Date of Service: 04/12/25 Progress Note/DC Note Progress Note/Discharge Note: DC Note Patient Information Visit Reasons: lumbar fusion Service Discharge Date: 04/12/25 Status Assessment: Pt has been seen for 7 visits (eval + 6 visits) inconsistently. Pt last treated on 03/23/25. At this time Pt will be d/c from care due to change in insurance. Pt did not meet set goals and will require new MD and auth to resume physical therapy; thank you for your referrals
== END 2025-04-12 23:59 | disposition home or self-care (01) ==
LOC: CPTX 11:30
PROVIDERS: PCP Orthopaedic Surgery Orthopaedic Surgery of the Spine; Referring Provider Orthopaedic Surgery Orthopaedic Surgery of the Spine; Visit Provider Orthopaedic Surgery Orthopaedic Surgery of the Spine
DX: Z47.89 Encounter for other orthopedic aftercare (principal); Z98.1 Arthrodesis status; M54.50 Low back pain, unspecified; M54.6 Pain in thoracic spine; R26.2 Difficulty in walking, not elsewhere classified; R26.89 Other abnormalities of gait and mobility
CPT/HCPCS: 97110